=== PATIENT | female | born 1955 | race Caucasian/White ===

== ENCOUNTER 2020-04-28 14:27 | Emergency (ER) | payer MEDICARE ==
--- NOTE | 2020-04-28 14:46 | ED ---
General Adult HPI - General Chief complaint: Shortness of Breath Stated complaint: SOB,cough Time Seen by Provider: 04/28/20 14:41 Source: patient Mode of arrival: ambulatory Limitations: no limitations - History of Present Illness Initial comments: 64-year-old female with history of diabetes presents to the emergency department with chief complaint of weakness and fatigue. Patient reports she was diagnosed 6 days ago with covid but not continues to feel fatigued. States she is sleeping longer unusual. Reports decreased appetite and a nonproductive cough. States she is not able to sleep well at night due to cough. She denies any chest pain or shortness of breath. Denies any nausea vomiting or diarrhea. She does report a slight sore throat and clear bilaterally diarrhea but denies any otalgia. Denies any headaches blurred vision. Does report chills but no fevers. States she spoke to her primary care physician who started her on a pr ednisone taper as well as doxycycline. - Related Data Home Medications Medication Instructions Recorded Confirmed Albuterol Inhaler [Ventolin Hfa 1 - 2 puff INHALATION RT-Q4H PRN 04/28/20 04/28/20 Inhaler] Ascorbic Acid [Vitamin C] 500 mg PO DAILY 04/28/20 04/28/20 Cholecalciferol [Vitamin D3 (25 25 mcg PO DAILY 04/28/20 04/28/20 Mcg = 1000 Iu)] Doxycycline Hyclate [Vibramycin] 100 mg PO BID 04/28/20 04/28/20 Glimepiride [Amaryl] 1 mg PO AC-BID 04/28/20 04/28/20 Latanoprost [Xalatan 0.005%] 1 drop BOTH EYES HS 04/28/20 04/28/20 Metoprolol Tartrate [Lopressor] 25 mg PO DAILY 04/28/20 04/28/20 Super B Complex 1 tab PO DAILY 04/28/20 04/28/20 metFORMIN HCL [Glucophage] 500 mg PO BID 04/28/20 04/28/20 predniSONE [Deltasone] See Taper PO DAILY 04/28/20 04/28/20 Allergies Allergy/AdvReac Type Severity Reaction Status Date / Time methocarbamol [From Robaxin] Allergy Rash/Hives Verified 04/28/20 16:38 shellfish derived [Shellfish] Allergy Rash/Hives Verified 04/28/20 16:38 Sulfa (Sulfonamide Allergy Rash/Hives Verified 04/28/20 16:38 Antibiotics) Review of Systems ROS Statement: Those systems with pertinent positive or pertinent negative responses have been documented in the HPI. ROS Other: All systems not noted in ROS Statement are negative. Past Medical History Past Medical History: Diabetes Mellitus History of Any Multi-Drug Resistant Organisms: None Reported Past Surgical History: Appendectomy Past Psychological History: No Psychological Hx Reported Smoking Status: Never smoker Past Alcohol Use History: None Reported Past Drug Use History: None Reported General Exam Limitations: no limitations General appearance: alert, in no apparent distress Head exam: Present: atraumatic, normocephalic, normal inspection Eye exam: Present: normal appearance, PERRL, EOMI Pupils: Present: normal accommodation ENT exam: Present: normal exam, normal oropharynx, mucous membranes moist, TM's normal bilaterally, normal external ear exam Neck exam: Present: normal inspection, full ROM. Absent: tenderness Respiratory exam: Present: normal lung sounds bilaterally. Absent: respiratory distress, wheezes, rales, rhonchi, stridor, chest wall tenderness, accessory muscle use Cardiovascular Exam: Present: regular rate, normal rhythm, normal heart sounds GI/Abdominal exam: Present: soft. Absent: distended, tenderness, guarding, rebound Extremities exam: Present: normal inspection, full ROM, normal capillary refill. Absent: tenderness Back exam: Present: normal inspection, full ROM. Absent: tenderness, CVA tenderness (R) Neurological exam: Present: alert, oriented X3 Psychiatric exam: Present: normal affect, normal mood Skin exam: Present: warm, dry, intact, normal color Course Vital Signs 04/28/20 04/28/20 04/28/20 14:28 15:25 15:44 Temperature 98.3 F Pulse Rate 100 90 Respiratory 24 18 Rate Blood Pressure 133/83 117/72 O2 Sat by Pulse 95 95 95 Oximetry 04/28/20 04/28/20 04/28/20 17:14 17:32 18:12 Temperature 98.5 F 98.2 F 98.1 F Pulse Rate 92 92 92 Respiratory 18 18 18 Rate Blood Pressure 111/67 119/61 106/61 O2 Sat by Pulse 95 94 L 94 L Oximetry 04/28/20 18:43 Temperature 98.6 F Pulse Rate 91 Respiratory 18 Rate Blood Pressure 116/63 O2 Sat by Pulse 94 L Oximetry Medical Decision Making - Medical Decision Making 64-year-old female with history of diabetes presents emergency Department with a chief complaint of fatigue. On physical examination, patient is resting comfortably bed. Patient is nontoxic. Patient has an oxygen saturation of 95% on room air. Otherwise stable vitals. CBC reveals mild leukopenia which is expected with coronavirus. Chest x-ray revealed questionable infiltrates. Coags within normal limits. Elevated d-dimer. CT chest angiogram showed no signs of DVT but does reveal pneumonia. Elevated reactive markers. Initial lactic acid 2.9, repeat 1.7 likely due to dehydration. Patient was given the monoclonal antibody. She was observed for an hour after administration, she tolerated well. Patient was advised to continue quarantine. Tylenol or Motrin for pain. Return parameters were discussed with patient was understanding and agreeable. Case discussed with - Lab Data Result diagrams: 04/28/20 15:00 04/28/20 15:00 Lab Results 04/28/20 04/28/20 04/28/20 Range/Units 15:00 15:00 15:00 WBC 3.1 L (3.8-10.6) k/uL RBC 5.04 (3.80-5.40) m/uL Hgb 14.2 (11.4-16.0) gm/dL Hct 41.8 (34.0-46.0) % MCV 83.0 (80.0-100.0) fL MCH 28.3 (25.0-35.0) pg MCHC 34.1 (31.0-37.0) g/dL RDW 12.7 (11.5-15.5) % Plt Count 156 (150-450) k/uL MPV 7.0 Neutrophils % 74 % Lymphocytes % 18 % Monocytes % 6 % Eosinophils % 0 % Basophils % 0 % Neutrophils # 2.3 (1.3-7.7) k/uL Lymphocytes # 0.6 L (1.0-4.8) k/uL Monocytes # 0.2 (0-1.0) k/uL Eosinophils # 0.0 (0-0.7) k/uL Basophils # 0.0 (0-0.2) k/uL PT 9.9 (9.0-12.0) sec INR 0.9 (<1.2) APTT 23.3 (22.0-30.0) sec D-Dimer 1.05 H (<0.60) mg/L FEU Sodium 131 L (137-145) mmol/L Potassium 4.5 (3.5-5.1) mmol/L Chloride 100 (98-107) mmol/L Carbon Dioxide 23 (22-30) mmol/L Anion Gap 8 mmol/L BUN 19 H (7-17) mg/dL Creatinine 0.80 (0.52-1.04) mg/dL Est GFR (CKD-EPI)AfAm 90 (>60 ml/min/1.73 sqM) Est GFR (CKD-EPI)NonAf 78 (>60 ml/min/1.73 sqM) Glucose 303 H (74-99) mg/dL Lactic Ac Sepsis Rflx Plasma Lactic Acid Crow (0.7-2.0) mmol/L Calcium 10.1 (8.4-10.2) mg/dL Magnesium 1.7 (1.6-2.3) mg/dL Ferritin 520.5 H (10.0-291.0) ng/mL Total Bilirubin 0.5 (0.2-1.3) mg/dL AST 38 H (14-36) U/L ALT 23 (4-34) U/L Alkaline Phosphatase 48 (38-126) U/L Lactate Dehydrogenase 457 (313-618) U/L C-Reactive Protein 39.2 H (<10.0) mg/L Total Protein 7.0 (6.3-8.2) g/dL Albumin 3.7 (3.5-5.0) g/dL 04/28/20 04/28/20 04/28/20 Range/Units 15:00 15:21 17:55 WBC (3.8-10.6) k/uL RBC (3.80-5.40) m/uL Hgb (11.4-16.0) gm/dL Hct (34.0-46.0) % MCV (80.0-100.0) fL MCH (25.0-35.0) pg MCHC (31.0-37.0) g/dL RDW (11.5-15.5) % Plt Count (150-450) k/uL MPV Neutrophils % % Lymphocytes % % Monocytes % % Eosinophils % % Basophils % % Neutrophils # (1.3-7.7) k/uL Lymphocytes # (1.0-4.8) k/uL Monocytes # (0-1.0) k/uL Eosinophils # (0-0.7) k/uL Basophils # (0-0.2) k/uL PT (9.0-12.0) sec INR (<1.2) APTT (22.0-30.0) sec D-Dimer (<0.60) mg/L FEU Sodium (137-145) mmol/L Potassium (3.5-5.1) mmol/L Chloride (98-107) mmol/L Carbon Dioxide (22-30) mmol/L Anion Gap mmol/L BUN (7-17) mg/dL Creatinine (0.52-1.04) mg/dL Est GFR (CKD-EPI)AfAm (>60 ml/min/1.73 sqM) Est GFR (CKD-EPI)NonAf (>60 ml/min/1.73 sqM) Glucose (74-99) mg/dL Lactic Ac Sepsis Rflx Y Plasma Lactic Acid Crow 2.9 H* 1.7 (0.7-2.0) mmol/L Calcium (8.4-10.2) mg/dL Magnesium (1.6-2.3) mg/dL Ferritin (10.0-291.0) ng/mL Total Bilirubin (0.2-1.3) mg/dL AST (14-36) U/L ALT (4-34) U/L Alkaline Phosphatase (38-126) U/L Lactate Dehydrogenase (313-618) U/L C-Reactive Protein (<10.0) mg/L Total Protein (6.3-8.2) g/dL Albumin (3.5-5.0) g/dL Disposition Clinical Impression: Pneumonia due to COVID-19 virus, Fatigue Disposition: HOME SELF-CARE Condition: Stable Instructions (If sedation given, give patient instructions): Coronavirus Disease 2019 (COVID-19) Additional Instructions: Please return to the Emergency Department if symptoms worsen or any other concerns. Is patient prescribed a controlled substance at d/c from ED?: No Referrals: Clover Ceballos MD [Primary Care Provider] - 1-2 days Time of Disposition: 18:18
[2020-04-28] MEDS ORDERED: SODIUM CHLORIDE 0.9% 1,000 ML IV STA (14:54)
[2020-04-28 15:18] LABS: Albumin 3.7 g/dL (3.5-5.0); C Reactive Protein 39.2 mg/L (<10.0); Calcium 10.1 mg/dL (8.4-10.2); Magnesium 1.7 mg/dL (1.6-2.3); Potassium 4.5 mmol/L (3.5-5.1); Total Bilirubin 0.5 mg/dL (0.2-1.3)
[2020-04-28 15:24] LABS: INR 0.9 (<1.2); Partial Thromboplastin Time 23.3 sec (22.0-30.0); Prothrombin Time 9.9 sec (9.0-12.0)
--- NOTE | 2020-04-28 15:31 | XR ---
EXAMINATION TYPE: XR chest 1V portable DATE OF EXAM: 04/28/2020 COMPARISON: 02/01/2012 HISTORY: Chest pain TECHNIQUE: Single view FINDINGS: There is interstitial pulmonary infiltrates in the mid and lower lung schwartz. Heart size is normal. There are no hilar masses. Costophrenic angles are clear. there are chest leads. IMPRESSION: There is some chronic pulmonary interstitial infiltrates also present on the old exam and consistent with some degree of pulmonary fibrosis. Acute interstitial pneumonia not excluded. No heart failure seen.
[2020-04-28 15:45] VITALS: RESP 18
[2020-04-28 15:48] LABS: D-Dimer 1.05 mg/L FEU (<0.60)
[2020-04-28 15:52] LABS: Basophils % (A) 0 %; Eosinophils % (A) 0 %; HCT 41.8 % (34.0-46.0); HGB 14.2 gm/dL (11.4-16.0); Lymphocytes # (A) 0.6 k/uL (1.0-4.8); Lymphocytes % (A) 18 %; MCH 28.3 pg (25.0-35.0); MCHC 34.1 g/dL (31.0-37.0); Monocytes # (A) 0.2 k/uL (0-1.0); Monocytes % (A) 6 %; Neutrophils # (A) 2.3 k/uL (1.3-7.7); Neutrophils % (A) 74 %; Platelet Count 156 k/uL (150-450); RBC 5.04 m/uL (3.80-5.40); RDW 12.7 % (11.5-15.5); WBC 3.1 k/uL (3.8-10.6)
--- NOTE | 2020-04-28 16:18 | CT ---
EXAMINATION TYPE: CT chest angio for PE DATE OF EXAM: 04/28/2020 COMPARISON: 02/01/2012 HISTORY: Covid +, elevated d-dimer CT DLP: 434.7 mGycm Automated exposure control for dose reduction was used. CONTRAST: Performed with IV Contrast, patient injected with 100 mL of Isovue 370. There are 3-D post processed images. There is patchy interstitial infiltrates throughout both lungs. Heart is within normal limits of size . There are no hilar masses. There is no mediastinal adenopathy. Thoracic aorta is intact. There is n o aneurysm or dissection. There are bronchial lymph nodes that measure up to 1.5 cm. There is no medi astinal adenopathy. There is no pleural effusion. There is no evidence of filling defect in the pulmonary arteries. The bony thorax is intact. There is hemangioma of a mid thoracic vertebra. Upper abdominal soft tissues are intact. IMPRESSION: No evidence of pulmonary embolism. There is patchy interstitial pneumonia which is increased compared to old exam. No suspicious pulmonary mass.
[2020-04-28] MEDS ORDERED: BAMLANIVIMAB 700 MG in SODIUM CHLORIDE 0.9% 50 ML IVPB ONE (17:15)
[2020-04-28 18:45] VITALS: BP 116/63; PULSE 91; TEMP 98.6
[2020-04-28 23:01] LABS: Ferritin 520.5 ng/mL (10.0-291.0)
== END 2020-04-28 18:43 | disposition home or self-care (01) ==
LOC: EC 14:27
DX: U07.1 COVID-19 (principal); J12.82 Pneumonia due to coronavirus disease 2019; R53.83 Other fatigue; E11.9 Type 2 diabetes mellitus without complications; Z79.84 Long term (current) use of oral hypoglycemic drugs; Z79.899 Other long term (current) drug therapy; Z79.52 Long term (current) use of systemic steroids
CPT/HCPCS: 36415; 93005; 85379; 80053; 82728; 83605; 83615; 83735; 85025; 85610; 85730; 86140; 84145; 71045; 71275; 99285; 96374; 96361; Q9967; Q0239

== ENCOUNTER → 2020-09-19 | Outpatient (CLI) | payer MEDICARE ==
--- NOTE | 2020-09-19 09:40 | XR ---
EXAMINATION TYPE: XR knee complete LT DATE OF EXAM: 09/19/2020 COMPARISON: None HISTORY: 65-year-old female M25.562, left knee pain TECHNIQUE: 3 views FINDINGS: Mild bicompartmental joint space narrowing. [id number] knee joint effusion. Tricompartmental d egenerative spurring. Meniscal chondrocalcinosis. Tensor mechanism is intact. No acute fracture, subl uxation, or dislocation. IMPRESSION: Mild tricompartmental osteoarthrosis. Meniscal chondrocalcinosis which could be idiopathic or could r eflect CPPD. Given the small to moderate knee joint effusion, if concern for internal derangement, MR I can be performed. No acute osseous abnormality seen.
== END | disposition home or self-care (01) ==
LOC: RADXRMAIN 09:13
PROVIDERS: ATTEND Physician Assistant
DX: M17.12 Unilateral primary osteoarthritis, left knee (principal); M11.262 Other chondrocalcinosis, left knee